=== PATIENT | male | born 1995 | race African-American/Black ===

== ENCOUNTER 2021-02-26 19:16 | Emergency (ER) | payer SELFPAY | END 2021-02-26 21:34 | disposition home or self-care (01) | LOC: CSHERS 19:16 | DX: S46.911A Strain of unspecified muscle, fascia and tendon at shoulder and upper arm level, right arm, initial encounter (principal); J45.909 Unspecified asthma, uncomplicated; Y04.8XXA Assault by other bodily force, initial encounter ==